=== PATIENT | male | born 1955 | race Caucasian/White ===

== ENCOUNTER 2018-06-29 08:10 | Inpatient (IN) ==
[2018-06-29] MEDS ORDERED: DEXTROSE 50% 25 GM/50 ML SYRINGE IV PRN (08:30)
[2018-06-29] MEDS ORDERED: GLUCAGON 1 MG VIAL IM PRN (08:30)
[2018-06-29] MEDS: CHLORHEXIDINE 0.12% ORAL RINSE 60 ML BOTTLE SWISH/SPIT SCH ×2 (09:53→20:43)
[2018-06-29 09:54] LABS: Basophils # 0.1 10*3/uL (0.0-0.2); Basophils % 0.6 % (0.0-0.8); Eosinophils # 0.3 10*3/uL (0.0-0.87); Eosinophils % 3.2 % (0.00-10.9); Hematocrit 37.2 VOL% (42.0-52.0); Hemoglobin 12.2 GM/DL (14.0-18.0); Immature Granulocytes % 0.2 %; Immature Granulocytes Absolute 0.02 #; Lymphocytes # 1.7 10*3/uL (1.4-4.0); Lymphocytes % 19.6 % (21.2-54.2); Mean Corpuscular HGB Conc 32.8 GM/DL (32-36); Mean Corpuscular Volume 88.6 FL (87-102); Mean Platelet Volume 10.4 FL (9.6-12.0); Monocytes % 6.9 % (1.7-12.7); Neutrophils % 69.5 % (38.7-73.9); Platelet Count 240 T/CUMM (130-400); White Blood Count 8.4 T/CUMM (4-12)
[2018-06-29 10:13] LABS: Alanine Aminotransferase 17 U/L (16-61); Albumin 3.7 G/DL (3.4-5.0); Alkaline Phosphatase 83 U/L (45-117); Aspartate Amino Transferase 8 U/L (0-37); Bilirubin,Total < 0.39 MG/DL (0.2-1.0); Blood Urea Nitrogen 10 MG/DL (7-18); Calcium 9.2 MG/DL (8.5-10.1); Glucose 95 MG/DL (74-106); Osmolality,Calculated 279.3 MOS/KG (273-304); Total Protein 7.4 G/DL (6.4-8.3)
[2018-06-29 10:23] LABS: ABG Base Excess -3.7 MMOL/L (-2.5-2.5); ABG HCO3 21.4 MMOL/L (20-26); ABG Oxygen Saturation 99.2 % (95-100); ABG PCO2 21.6 MM HG (35-48); ABG PH 7.517 (7.35-7.45); ABG TCO2 15.5 MMOL/L (23-27); Allen Test Positive
[2018-06-29] MEDS: RANOLAZINE 500 MG TABLET PO SCH ×2 (10:50→20:42)
[2018-06-29] MEDS: LEVOTHYROXINE 50 MCG TABLET PO SCH (10:50)
[2018-06-29] MEDS: LISINOPRIL 10 MG TABLET PO SCH (10:52)
[2018-06-29] MEDS: PANTOPRAZOLE 40 MG TABLET PO SCH (10:52)
[2018-06-29] MEDS: SODIUM CHLORIDE 0.9% 1,000 ML IV SCH (10:53)
[2018-06-29] MEDS: LURASIDONE 40 MG TABLET PO SCH (10:54)
[2018-06-29] MEDS: hydrOXYzine HCL 25 MG TABLET PO SCH ×4 (10:54→20:41)
[2018-06-29] MEDS: clonazePAM 0.5 MG TABLET PO SCH ×3 (10:54→20:42)
[2018-06-29] MEDS: ASPIRIN EC 325 MG TABLET PO SCH (10:54)
[2018-06-29] MEDS: CARVEDILOL 6.25 MG TABLET PO SCH ×2 (10:55→20:43)
[2018-06-29] MEDS: DULoxetine 30 MG CAPSULE PO SCH ×2 (10:55→20:42)
[2018-06-29] MEDS: CHLORHEXIDINE 4% SOLN 118 ML BOTTLE TOP SCH ×2 (14:55→20:43)
[2018-06-29] MEDS ORDERED: SIMVASTATIN 20 MG TABLET PO SCH (17:00)
[2018-06-29] MEDS ORDERED: MIRTAZAPINE 30 MG TABLET PO SCH (21:00)
[2018-06-30] MEDS ORDERED: PAPAVERINE 60 MG/2 ML VIAL ONE (04:22)
[2018-06-30] MEDS ORDERED: VANCOMYCIN 1,000 MG VIAL ONE (04:23)
[2018-06-30] MEDS ORDERED: LORazepam 1 MG TABLET PO ONE (05:00)
[2018-06-30] MEDS: CHLORHEXIDINE 4% SOLN 118 ML BOTTLE TOP SCH ×2 (05:40→12:19)
[2018-06-30] MEDS ORDERED: CEFUROXIME INJ 1,500 MG in SYRINGE 1 EACH IV ONE (06:00)
[2018-06-30] MEDS ORDERED: MINERAL OIL/PETROLATUM OPH OINT 3.5 GM TUBE ONE (06:07)
[2018-06-30] MEDS ORDERED: MIDAZOLAM 10 MG/2 ML VIAL ONE (06:07)
[2018-06-30] MEDS ORDERED: SUFentanil 250 MCG/5 ML AMP ONE (06:07)
[2018-06-30] MEDS ORDERED: PHENYLEPHRINE 1 MG/10 ML SYRINGE IV ONE ×2 (06:08→10:00)
[2018-06-30] MEDS ORDERED: AMINOCAPROIC ACID 5,000 MG/20 ML VIAL ONE (06:09)
[2018-06-30] MEDS: LEVOTHYROXINE 50 MCG TABLET PO SCH (06:44)
[2018-06-30] MEDS ORDERED: POTASSIUM CHLORIDE RIDER 100 ML IV ONE (07:47)
[2018-06-30] MEDS ORDERED: PHENYLEPHRINE DRIP 40 MG/250 ML PREMIX IV ONE (07:47)
[2018-06-30] MEDS ORDERED: NITROPRUSSIDE 50 MG/2 ML VIAL ONE (07:48)
[2018-06-30 08:01] LABS: ABG Base Excess -6.7 MMOL/L (-2.5-2.5); ABG Oxygen Saturation 99.7 % (95-100); ABG PCO2 34.2 MM HG (35-48); ABG PH 7.338 (7.35-7.45); ABG TCO2 16.5 MMOL/L (23-27); Glucose Heart Surgery 207 MG/DL (74-106); Hematocrit Heart Surgery 35.8 PERCENT (42-52); Hemoglobin Heart Surgery 11.6 G/DL (14.0-18.0); Ionized Calcium Arterial 1.23 MMOL/L (1.21-1.46); PCO2 Patient Temp Arterial 34.2 MMHG; PH Patient Temp Arterial 7.338; Patient Temperature 37 CELCIUS; Potassium Heart/CVR 4.3 MMOL/L (3.5-5.1); Sodium Heart/CVR 140 MMOL/L (135-145)
[2018-06-30 08:14] LABS: Apearance,Urine CLEAR (Clear); Bilirubin,Urine Negative (Negative); Blood, Urine Negative (Negative); Glucose,Urine (UA) 50 mg/dL (Negative); Ketones,Urine Negative (Negative); Nitrite,Urine Negative (Negative); Protein,Urine Negative; Urine Color Yellow (Yellow); Urine Specific Gravity 1.017 (1.001-1.035); Urine Urobilinogen < 2.0 EU/DL (0.2-1.0)
[2018-06-30 08:26] LABS: Mucus,Urine Rare /LPF (Occasional); RBC,Urine Rare /HPF (0-4)
[2018-06-30 09:39] LABS: Hematocrit Heart Surgery 24.4 PERCENT (42-52); Hemoglobin Heart Surgery 7.8 G/DL (14.0-18.0); PCO2 Patient Temp Venous 35.6 MM HG; PH Patient Temp Venous 7.381; PO2 Patient Temp Venous 36.4 MM HG; Potassium Heart/CVR 5.6 MMOL/L (3.5-5.1); VBG Base Excess -3.4 MEQ/L (0-4); VBG HCO3 21.2 MEQ/L (24-28); VBG PCO2 39.2 MMHG (41-51); VBG PH 7.353; VBG PO2 41.8 MMHG (17-40)
[2018-06-30] MEDS ORDERED: CALCIUM CHLORIDE 1,000 MG/10 ML VIAL IV ONE (09:59)
[2018-06-30] MEDS ORDERED: PHENYLEPHRINE DRIP 20 MG/250 ML PREMIX IV ONE (09:59)
[2018-06-30] MEDS ORDERED: VECURONIUM 10 MG VIAL IV ONE (10:00)
[2018-06-30] MEDS ORDERED: NITROGLYCERIN DRIP 50 MG/250 ML BOTTLE IV ONE (10:00)
[2018-06-30] MEDS ORDERED: HEPARIN/NACL 0.9% 2 UNITS/ML 500 ML IV ONE (10:00)
[2018-06-30] MEDS ORDERED: ETOMIDATE 40 MG/20 ML VIAL IV ONE (10:00)
[2018-06-30 10:13] LABS: Hematocrit Heart Surgery 27.1 PERCENT (42-52); Hemoglobin Heart Surgery 8.7 G/DL (14.0-18.0); PCO2 Patient Temp Venous 33.8 MM HG; PH Patient Temp Venous 7.397; PO2 Patient Temp Venous 40.8 MM HG; Potassium Heart/CVR 5.9 MMOL/L (3.5-5.1); VBG Base Excess -3.5 MEQ/L (0-4); VBG HCO3 21.2 MEQ/L (24-28); VBG Oxygen Saturation 73.7 %; VBG PCO2 33.8 MMHG (41-51); VBG PH 7.397; VBG PO2 40.8 MMHG (17-40)
[2018-06-30] MEDS ORDERED: MANNITOL 100 GM/500 ML BAG IV ONE (10:42)
[2018-06-30] MEDS ORDERED: HEPARIN 10,000 UNIT/10 ML VIAL ONE (10:43)
[2018-06-30] MEDS ORDERED: ALBUMIN 25% 25 GM/100 ML VIAL IV ONE (10:43)
[2018-06-30] MEDS ORDERED: SODIUM BICARBONATE 50 MEQ/50 ML VIAL IV ONE (10:43)
[2018-06-30] MEDS ORDERED: methylPREDNISolone SOD SUC 1,000 MG/8 ML VIAL ONE (10:43)
[2018-06-30] MEDS ORDERED: PROTAMINE SULFATE 250 MG/25 ML VIAL IV ONE (10:43)
[2018-06-30] MEDS ORDERED: DEXTROSE 5% KCL 20 MEQ 20 MEQ/1,000 ML BAG IV ONE (10:43)
[2018-06-30] MEDS ORDERED: MAGNESIUM SULFATE 5 GM/10 ML VIAL IV ONE (10:43)
[2018-06-30] MEDS ORDERED: FUROSEMIDE 20 MG/2 ML VIAL ONE (10:44)
[2018-06-30 11:00] LABS: ABG Base Excess -5.3 MMOL/L (-2.5-2.5); ABG HCO3 20.1 MMOL/L (20-26); ABG Oxygen Saturation 99.5 % (95-100); ABG PCO2 36.3 MM HG (35-48); ABG PH 7.346 (7.35-7.45); ABG TCO2 18.3 MMOL/L (23-27); Glucose Heart Surgery 292 MG/DL (74-106); Hematocrit Heart Surgery 28.6 PERCENT (42-52); Hemoglobin Heart Surgery 9.2 G/DL (14.0-18.0); Ionized Calcium Arterial 1.25 MMOL/L (1.21-1.46); PCO2 Patient Temp Arterial 36.3 MMHG; PH Patient Temp Arterial 7.346; Patient Temperature 37 CELCIUS; Potassium Heart/CVR 4.6 MMOL/L (3.5-5.1); Sodium Heart/CVR 135 MMOL/L (135-145)
[2018-06-30] MEDS: LACTATED RINGERS 1,000 ML IV PRN ×4 (12:00→18:22)
[2018-06-30] MEDS ORDERED: PROTAMINE SULFATE 50 MG/5 ML VIAL IV ONE ×2 (12:08→12:15)
[2018-06-30] MEDS ORDERED: MORPHINE 10 MG/1 ML VIAL IV PRN (12:14)
[2018-06-30] MEDS ORDERED: PHENYLEPHRINE DRIP 40 MG/250 ML PREMIX IV PRN (12:14)
[2018-06-30] MEDS ORDERED: INSULIN REGULAR DRIP 100 ML IV SCH (12:14)
[2018-06-30] MEDS ORDERED: MAGNESIUM SULF RIDER 2 GM in PREMIX 1 EACH IV PRN (12:14)
[2018-06-30] MEDS ORDERED: SODIUM CHLORIDE 0.45% 1,000 ML IV SCH ×2 (12:14)
[2018-06-30] MEDS ORDERED: INSULIN REGULAR 100 UNIT/ML IV PRN (12:14)
[2018-06-30] MEDS ORDERED: INSULIN REGULAR 100 UNIT/ML IV ONE (12:14)
[2018-06-30] MEDS ORDERED: ACETAMINOPHEN 650 MG SUPP RECTAL PRN (12:14)
[2018-06-30] MEDS ORDERED: DEXTROSE 50% 25 GM/50 ML SYRINGE IV PRN ×2 (12:14)
[2018-06-30] MEDS ORDERED: MAGNESIUM SULF RIDER 4 GM in PREMIX 1 EACH IV PRN (12:14)
[2018-06-30] MEDS ORDERED: ONDANSETRON 4 MG/2 ML VIAL IV PRN (12:14)
[2018-06-30] MEDS ORDERED: MIDAZOLAM 2 MG/2 ML VIAL IV PRN (12:14)
[2018-06-30] MEDS ORDERED: MORPHINE 4 MG/1 ML VIAL IV PRN (12:14)
[2018-06-30] MEDS ORDERED: CALCIUM CHLORIDE 1,000 MG/10 ML SYRINGE IV PRN (12:14)
[2018-06-30] MEDS ORDERED: VECURONIUM 10 MG VIAL IV PRN ×2 (12:14)
[2018-06-30] MEDS ORDERED: MIDAZOLAM 10 MG/2 ML VIAL IV PRN (12:14)
[2018-06-30] MEDS ORDERED: LACTATED RINGERS 250 ML IV PRN (12:14)
[2018-06-30] MEDS ORDERED: NITROPRUSSIDE 100 MG in DEXTROSE 5% 250 ML IV PRN (12:14)
[2018-06-30 12:40] LABS: ABG Base Excess -4.1 MMOL/L (-2.5-2.5); ABG Oxygen Saturation 99.3 % (95-100); ABG PH 7.375 (7.35-7.45); ABG TCO2 18.7 MMOL/L (23-27); Glucose Heart Surgery 292 MG/DL (74-106); Hematocrit Heart Surgery 30.1 PERCENT (42-52); Hemoglobin Heart Surgery 9.7 G/DL (14.0-18.0); Potassium Heart/CVR 3.7 MMOL/L (3.5-5.1)
[2018-06-30 12:42] LABS: Basophils % 0.3 % (0.0-0.8); Eosinophils # 0.1 10*3/uL (0.0-0.87); Eosinophils % 0.7 % (0.00-10.9); Hematocrit 29.5 VOL% (42.0-52.0); Immature Granulocytes % 0.6 %; Immature Granulocytes Absolute 0.06 #; Lymphocytes # 0.9 10*3/uL (1.4-4.0); Lymphocytes % 8.4 % (21.2-54.2); Mean Corpuscular HGB Conc 32.2 GM/DL (32-36); Mean Corpuscular Volume 88.6 FL (87-102); Mean Platelet Volume 10.3 FL (9.6-12.0); Monocytes % 3.5 % (1.7-12.7); Neutrophils % 86.5 % (38.7-73.9); Red Cell Distribution Width 13.8 % (9.3-17.3); White Blood Count 10.2 T/CUMM (4-12)
[2018-06-30 12:43] LABS: Hemoglobin 9.5 GM/DL (14.0-18.0); Platelet Count 182 T/CUMM (130-400); Red Blood Count 3.33 MC/CUMM (3.8-5.5)
[2018-06-30] MEDS: POTASSIUM CHLORIDE RIDER 20 MEQ in PREMIX 1 EACH IV PRN ×4 (12:47→22:00)
[2018-06-30 12:48] LABS: INR 1.1; PT Patient Result 11.8 SECS; Partial Thromboplastin Time 25.6 SECS (0-40)
[2018-06-30 13:00] LABS: Albumin 2.9 G/DL (3.4-5.0); Bilirubin,Total 0.6 MG/DL (0.2-1.0); Calcium 8.1 MG/DL (8.5-10.1); Osmolality,Calculated 289.3 MOS/KG (273-304); Total Protein 5.4 G/DL (6.4-8.3)
[2018-06-30 13:02] LABS: CKMB % 6.3 %
[2018-06-30 13:03] LABS: Troponin I 2.98 NG/ML (0.00-0.045)
[2018-06-30] MEDS: POTASSIUM CHLORIDE RIDER 10 MEQ in PREMIX 1 EACH IV PRN ×4 (13:27→22:42)
[2018-06-30 14:27] LABS: ABG Base Excess -4.4 MMOL/L (-2.5-2.5); ABG HCO3 20.8 MMOL/L (20-26); ABG Oxygen Saturation 99.3 % (95-100); ABG PCO2 36.8 MM HG (35-48); ABG PH 7.356 (7.35-7.45); ABG TCO2 18.8 MMOL/L (23-27); Glucose Heart Surgery 253 MG/DL (74-106); Hematocrit Heart Surgery 31.5 PERCENT (42-52); Hemoglobin Heart Surgery 10.2 G/DL (14.0-18.0); Potassium Heart/CVR 3.7 MMOL/L (3.5-5.1)
[2018-06-30] MEDS: ALBUMIN 5% 12.5 GM in PREMIX 1 EACH IV PRN ×2 (16:54→19:54)
[2018-06-30 18:01] LABS: ABG Base Excess -3.5 MMOL/L (-2.5-2.5); ABG HCO3 21.5 MMOL/L (20-26); ABG Oxygen Saturation 98.8 % (95-100); ABG PCO2 38.2 MM HG (35-48); ABG TCO2 19.8 MMOL/L (23-27); Glucose Heart Surgery 195 MG/DL (74-106); Hematocrit Heart Surgery 29.6 PERCENT (42-52); Hemoglobin Heart Surgery 9.6 G/DL (14.0-18.0); Potassium Heart/CVR 3.7 MMOL/L (3.5-5.1)
[2018-06-30] MEDS ORDERED: CEFUROXIME INJ 1,500 MG in SYRINGE 1 EACH IV SCH (19:42)
[2018-06-30 20:15] LABS: ABG Base Excess -4.3 MMOL/L (-2.5-2.5); ABG HCO3 20.8 MMOL/L (20-26); ABG Oxygen Saturation 98.2 % (95-100); ABG PCO2 38.2 MM HG (35-48); ABG PH 7.346 (7.35-7.45); ABG TCO2 19.2 MMOL/L (23-27); Glucose Heart Surgery 154 MG/DL (74-106); Hematocrit Heart Surgery 29.6 PERCENT (42-52); Hemoglobin Heart Surgery 9.6 G/DL (14.0-18.0); Potassium Heart/CVR 3.9 MMOL/L (3.5-5.1)
[2018-06-30 20:49] LABS: CKMB % 4.4 %
[2018-06-30 20:52] LABS: Troponin I 2.5 NG/ML (0.00-0.045)
[2018-06-30] MEDS ORDERED: CHLORHEXIDINE 0.12% ORAL RINSE 60 ML BOTTLE SWISH/SPIT SCH (21:00)
[2018-06-30 23:32] LABS: ABG Base Excess -3.3 MMOL/L (-2.5-2.5); ABG Oxygen Saturation 97.5 % (95-100); ABG PCO2 34.4 MM HG (35-48); ABG PH 7.403 (7.35-7.45); ABG PO2 115.6 MM HG (80-95); Glucose Heart Surgery 93 MG/DL (74-106); Hemoglobin Heart Surgery 9.6 G/DL (14.0-18.0); Potassium Heart/CVR 4.1 MMOL/L (3.5-5.1)
[2018-07-01 00:07] LABS: Basophils % 0.1 % (0.0-0.8); Hematocrit 27.1 VOL% (42.0-52.0); Hemoglobin 8.7 GM/DL (14.0-18.0); Immature Granulocytes % 0.5 %; Immature Granulocytes Absolute 0.07 #; Lymphocytes # 0.6 10*3/uL (1.4-4.0); Lymphocytes % 4.3 % (21.2-54.2); Mean Corpuscular HGB Conc 32.1 GM/DL (32-36); Mean Corpuscular Volume 88.6 FL (87-102); Mean Platelet Volume 10.4 FL (9.6-12.0); Monocytes % 3.9 % (1.7-12.7); Neutrophils % 91.2 % (38.7-73.9); Platelet Count 194 T/CUMM (130-400); Red Blood Count 3.06 MC/CUMM (3.8-5.5); White Blood Count 13.5 T/CUMM (4-12)
[2018-07-01 01:58] LABS: Band Neutrophils 1 % (0-10); Lymphocytes 5 % (20-55); Platelet Estimate Normal; Segmented Neutrophils 91 % (50-85); Total Cells Counted 100
[2018-07-01] MEDS ORDERED: PROPOFOL 1,000 MG/100 ML BOTTLE IV ONE (01:59)
[2018-07-01] MEDS ORDERED: PROPOFOL 1,000 MG/100 ML BOTTLE IV SCH (02:00)
[2018-07-01 03:17] LABS: ABG Base Excess -4.9 MMOL/L (-2.5-2.5); ABG Oxygen Saturation 97.9 % (95-100); ABG PCO2 31.2 MM HG (35-48); ABG PH 7.402 (7.35-7.45); ABG PO2 125.9 MM HG (80-95); ABG TCO2 19.9 MMOL/L (23-27); Glucose Heart Surgery 144 MG/DL (74-106); Hemoglobin Heart Surgery 10.3 G/DL (14.0-18.0); Potassium Heart/CVR 3.9 MMOL/L (3.5-5.1)
[2018-07-01] MEDS: POTASSIUM CHLORIDE RIDER 10 MEQ in PREMIX 1 EACH IV PRN (03:26)
[2018-07-01] MEDS: POTASSIUM CHLORIDE RIDER 20 MEQ in PREMIX 1 EACH IV PRN ×2 (03:52→06:40)
[2018-07-01 04:34] LABS: Basophils % 0.1 % (0.0-0.8); Hematocrit 29.4 VOL% (42.0-52.0); Hemoglobin 9.5 GM/DL (14.0-18.0); Immature Granulocytes % 0.6 %; Immature Granulocytes Absolute 0.09 #; Lymphocytes # 0.7 10*3/uL (1.4-4.0); Lymphocytes % 4.7 % (21.2-54.2); Mean Corpuscular HGB Conc 32.3 GM/DL (32-36); Mean Corpuscular Volume 90.2 FL (87-102); Mean Platelet Volume 10.8 FL (9.6-12.0); Monocytes % 5.4 % (1.7-12.7); Neutrophils % 89.2 % (38.7-73.9); Platelet Count 179 T/CUMM (130-400); Red Blood Count 3.26 MC/CUMM (3.8-5.5); Red Cell Distribution Width 13.8 % (9.3-17.3); White Blood Count 14.7 T/CUMM (4-12)
[2018-07-01 04:46] LABS: Alanine Aminotransferase 15 U/L (16-61); Albumin 3.3 G/DL (3.4-5.0); Alkaline Phosphatase 58 U/L (45-117); Aspartate Amino Transferase 17 U/L (0-37); Bilirubin,Direct < 0.100 MG/DL (0.0-0.20); Blood Urea Nitrogen 12 MG/DL (7-18); Calcium 8.4 MG/DL (8.5-10.1); Glucose 140 MG/DL (74-106); Osmolality,Calculated 284.1 MOS/KG (273-304); Total Protein 5.9 G/DL (6.4-8.3)
[2018-07-01 04:47] LABS: CKMB % 3.2 %
[2018-07-01 04:52] LABS: ABG Base Excess -4.3 MMOL/L (-2.5-2.5); ABG HCO3 20.8 MMOL/L (20-26); ABG Oxygen Saturation 98.7 % (95-100); ABG PCO2 32.3 MM HG (35-48); ABG PH 7.395 (7.35-7.45); Glucose Heart Surgery 157 MG/DL (74-106); Hematocrit Heart Surgery 30.9 PERCENT (42-52); Potassium Heart/CVR 4.4 MMOL/L (3.5-5.1)
[2018-07-01 04:55] LABS: Troponin I 2.14 NG/ML (0.00-0.045)
[2018-07-01 05:14] LABS: Lymphocytes 2 % (20-55); Metamyelocytes 1 %; Platelet Estimate Decreased; Polychromasia Few; Segmented Neutrophils 96 % (50-85); Total Cells Counted 100
[2018-07-01 05:35] LABS: ABG Base Excess -3.9 MMOL/L (-2.5-2.5); ABG HCO3 19.8 MMOL/L (20-26); ABG Oxygen Saturation 97.2 % (95-100); ABG PCO2 31.2 MM HG (35-48); ABG PO2 103.4 MM HG (80-95); ABG TCO2 20.7 MMOL/L (23-27); Glucose Heart Surgery 128 MG/DL (74-106); Hemoglobin Heart Surgery 10.4 G/DL (14.0-18.0); Potassium Heart/CVR 4.2 MMOL/L (3.5-5.1)
[2018-07-01] MEDS: CARVEDILOL 6.25 MG TABLET PO SCH ×3 (05:43→08:56)
[2018-07-01] MEDS ORDERED: ePHEDrine 50 MG/ML AMP ONE (06:09)
[2018-07-01] MEDS ORDERED: MAGNESIUM SULF RIDER 2 GM in PREMIX 1 EACH IV PRN (07:06)
[2018-07-01] MEDS ORDERED: DEXTROSE 50% 25 GM/50 ML SYRINGE IV PRN (07:06)
[2018-07-01] MEDS ORDERED: ZALEPLON 5 MG CAPSULE PO PRN (07:06)
[2018-07-01] MEDS ORDERED: ALUMINUM/MAGNES/SIMETH MAX STR 30 ML UDCUP PO PRN (07:06)
[2018-07-01] MEDS ORDERED: ONDANSETRON 4 MG/2 ML VIAL IV PRN (07:06)
[2018-07-01] MEDS ORDERED: oxyCODONE/ACETAMINOPHEN 5-325 MG TABLET PO PRN (07:06)
[2018-07-01] MEDS ORDERED: MAGNESIUM SULF RIDER 4 GM in PREMIX 1 EACH IV PRN (07:06)
[2018-07-01] MEDS ORDERED: GLUCAGON 1 MG VIAL IM PRN ×3 (07:06→07:17)
[2018-07-01] MEDS ORDERED: DEXTROSE 50% 25 GM/50 ML VIAL IV PRN ×2 (07:06→07:17)
[2018-07-01] MEDS ORDERED: MAGNESIUM HYDROXIDE SUSP 30 ML UDCUP PO PRN (07:06)
[2018-07-01] MEDS ORDERED: ACETAMINOPHEN 325 MG TABLET PO PRN (07:06)
[2018-07-01] MEDS ORDERED: POTASSIUM CHLORIDE 20 MEQ TABLET PO PRN (07:06)
[2018-07-01] MEDS: CEFUROXIME INJ 1,500 MG in SYRINGE 1 EACH IV SCH ×2 (07:42→18:31)
[2018-07-01] MEDS: SODIUM CHLOR 0.45% KCL 20 MEQ 20 MEQ/1,000 ML BAG IV SCH (07:42)
[2018-07-01] MEDS: BENZTROPINE 1 MG TABLET PO SCH ×2 (08:07→20:15)
[2018-07-01] MEDS: clonazePAM 0.5 MG TABLET PO SCH ×3 (08:07→20:15)
[2018-07-01] MEDS: PANTOPRAZOLE 40 MG TABLET PO SCH ×2 (08:07→08:51)
[2018-07-01] MEDS: FERROUS SULFATE 325 MG TABLET PO SCH (08:08)
[2018-07-01] MEDS: ISOSORBIDE MONONITRATE 30 MG TABLET PO SCH (08:08)
[2018-07-01] MEDS: DOCUSATE SODIUM 100 MG CAPSULE PO SCH (08:08)
[2018-07-01] MEDS: metFORMIN 500 MG TABLET PO SCH (08:08)
[2018-07-01] MEDS: ASPIRIN EC 325 MG TABLET PO SCH ×2 (08:08→08:50)
[2018-07-01] MEDS: sitaGLIPtin 25 MG TABLET PO SCH (08:08)
[2018-07-01] MEDS: KETOROLAC 30 MG/1 ML VIAL IV PRN ×2 (08:17→22:42)
[2018-07-01] MEDS: INSULIN REGULAR 100 UNIT/ML SUBCUT SCH ×4 (08:22→20:15)
[2018-07-01] MEDS: CHLORHEXIDINE 0.12% ORAL RINSE 60 ML BOTTLE SWISH/SPIT SCH ×3 (08:23→20:15)
[2018-07-01] MEDS: DULoxetine 30 MG CAPSULE PO SCH (08:50)
[2018-07-01] MEDS: hydrOXYzine HCL 25 MG TABLET PO SCH (08:50)
[2018-07-01] MEDS: LISINOPRIL 10 MG TABLET PO SCH ×2 (08:51→08:56)
[2018-07-01] MEDS: SODIUM CHLORIDE 0.9% 1,000 ML IV SCH (08:51)
[2018-07-01] MEDS: LURASIDONE 40 MG TABLET PO SCH ×2 (08:51→20:15)
[2018-07-01] MEDS: RANOLAZINE 500 MG TABLET PO SCH (08:52)
[2018-07-01] MEDS ORDERED: CARVEDILOL 6.25 MG TABLET PO SCH (09:00)
[2018-07-01] MEDS ORDERED: sitaGLIPtin 25 MG TABLET PO SCH (09:00)
[2018-07-01] MEDS ORDERED: ALBUMIN 5% 12.5 GM/250 ML VIAL IV ONE (09:33)
[2018-07-01] MEDS ORDERED: ALBUMIN 5% 12.5 GM in PREMIX 1 EACH IV ONE ×2 (09:47→10:44)
[2018-07-01] MEDS ORDERED: PHENYLEPHRINE DRIP 40 MG/250 ML PREMIX IV ONE (11:24)
[2018-07-01] MEDS ORDERED: PHENYLEPHRINE DRIP 40 MG/250 ML PREMIX IV PRN (12:05)
[2018-07-01] MEDS: SIMVASTATIN 20 MG TABLET PO SCH (20:15)
[2018-07-01] MEDS: INSULIN GLARGINE 100 UNIT/ML SUBCUT SCH (20:15)
[2018-07-02] MEDS: INSULIN REGULAR 100 UNIT/ML SUBCUT SCH ×7 (01:01→20:06)
[2018-07-02 05:05] LABS: Basophils % 0.3 % (0.0-0.8); Eosinophils % 0.2 % (0.00-10.9); Hematocrit 25.3 VOL% (42.0-52.0); Hemoglobin 8.1 GM/DL (14.0-18.0); Immature Granulocytes % 0.6 %; Immature Granulocytes Absolute 0.08 #; Lymphocytes # 1.9 10*3/uL (1.4-4.0); Lymphocytes % 14.4 % (21.2-54.2); Mean Corpuscular Volume 91.7 FL (87-102); Mean Platelet Volume 10.5 FL (9.6-12.0); Monocytes % 9.2 % (1.7-12.7); Neutrophils % 75.3 % (38.7-73.9); Platelet Count 163 T/CUMM (130-400); Red Blood Count 2.76 MC/CUMM (3.8-5.5); Red Cell Distribution Width 14.3 % (9.3-17.3); White Blood Count 13.3 T/CUMM (4-12)
[2018-07-02 05:32] LABS: Albumin 2.9 G/DL (3.4-5.0); Bilirubin,Direct 0.14 MG/DL (0.0-0.20); Bilirubin,Indirect 0.4 MG/DL (0.0-1.0); Bilirubin,Total 0.5 MG/DL (0.2-1.0); CKMB % 2.5 %; Calcium 8.2 MG/DL (8.5-10.1); Total Protein 5.3 G/DL (6.4-8.3)
[2018-07-02 05:40] LABS: Troponin I 2.45 NG/ML (0.00-0.045)
[2018-07-02] MEDS ORDERED: KETOROLAC 30 MG/1 ML VIAL IV PRN ×2 (05:54→12:30)
[2018-07-02] MEDS ORDERED: FUROSEMIDE 40 MG/4 ML VIAL IV ONE (06:00)
[2018-07-02] MEDS ORDERED: MORPHINE 4 MG/1 ML VIAL IV ONE (08:48)
[2018-07-02] MEDS: SODIUM CHLOR 0.45% KCL 20 MEQ 20 MEQ/1,000 ML BAG IV SCH (09:32)
[2018-07-02] MEDS: ASPIRIN EC 325 MG TABLET PO SCH (09:43)
[2018-07-02] MEDS: sitaGLIPtin 25 MG TABLET PO SCH (09:44)
[2018-07-02] MEDS: DOCUSATE SODIUM 100 MG CAPSULE PO SCH (09:44)
[2018-07-02] MEDS: CARVEDILOL 6.25 MG TABLET PO SCH (09:44)
[2018-07-02] MEDS: BENZTROPINE 1 MG TABLET PO SCH ×2 (09:45→20:06)
[2018-07-02] MEDS: LISINOPRIL 10 MG TABLET PO SCH (09:45)
[2018-07-02] MEDS: ISOSORBIDE MONONITRATE 30 MG TABLET PO SCH (09:45)
[2018-07-02] MEDS: metFORMIN 500 MG TABLET PO SCH (09:46)
[2018-07-02] MEDS: clonazePAM 0.5 MG TABLET PO SCH ×2 (09:46→20:05)
[2018-07-02] MEDS: FERROUS SULFATE 325 MG TABLET PO SCH (09:46)
[2018-07-02] MEDS: PANTOPRAZOLE 40 MG TABLET PO SCH (09:47)
[2018-07-02] MEDS: CHLORHEXIDINE 0.12% ORAL RINSE 60 ML BOTTLE SWISH/SPIT SCH ×2 (09:49→20:15)
[2018-07-02] MEDS ORDERED: ACETAMINOPHEN 325 MG TABLET PO PRN (12:30)
[2018-07-02] MEDS ORDERED: GLUCAGON 1 MG VIAL IM PRN ×2 (12:30)
[2018-07-02] MEDS ORDERED: ALUMINUM/MAGNES/SIMETH MAX STR 30 ML UDCUP PO PRN (12:30)
[2018-07-02] MEDS ORDERED: DEXTROSE 50% 25 GM/50 ML SYRINGE IV PRN (12:30)
[2018-07-02] MEDS ORDERED: DEXTROSE 50% 25 GM/50 ML VIAL IV PRN (12:30)
[2018-07-02] MEDS ORDERED: MAGNESIUM SULF RIDER 4 GM in PREMIX 1 EACH IV PRN (12:30)
[2018-07-02] MEDS ORDERED: MORPHINE 4 MG/1 ML VIAL IV PRN (12:30)
[2018-07-02] MEDS ORDERED: MAGNESIUM SULF RIDER 2 GM in PREMIX 1 EACH IV PRN (12:30)
[2018-07-02] MEDS ORDERED: SODIUM CHLOR 0.45% KCL 20 MEQ 20 MEQ/1,000 ML BAG IV SCH (12:30)
[2018-07-02] MEDS ORDERED: ONDANSETRON 4 MG/2 ML VIAL IV PRN (12:30)
[2018-07-02] MEDS ORDERED: MAGNESIUM HYDROXIDE SUSP 30 ML UDCUP PO PRN (12:30)
[2018-07-02] MEDS: INSULIN GLARGINE 100 UNIT/ML SUBCUT SCH (20:06)
[2018-07-02] MEDS: SIMVASTATIN 20 MG TABLET PO SCH (20:06)
[2018-07-02] MEDS: LURASIDONE 40 MG TABLET PO SCH (20:06)
[2018-07-03] MEDS: INSULIN REGULAR 100 UNIT/ML SUBCUT SCH ×6 (01:51→21:23)
[2018-07-03] MEDS: oxyCODONE/ACETAMINOPHEN 5-325 MG TABLET PO PRN ×2 (01:55→21:08)
[2018-07-03 05:38] LABS: Basophils % 0.3 % (0.0-0.8); Eosinophils # 0.1 10*3/uL (0.0-0.87); Eosinophils % 0.8 % (0.00-10.9); Hematocrit 27.3 VOL% (42.0-52.0); Hemoglobin 8.7 GM/DL (14.0-18.0); Immature Granulocytes % 0.7 %; Immature Granulocytes Absolute 0.08 #; Lymphocytes # 1.6 10*3/uL (1.4-4.0); Lymphocytes % 15.3 % (21.2-54.2); Mean Corpuscular HGB Conc 31.9 GM/DL (32-36); Mean Corpuscular Volume 90.4 FL (87-102); Mean Platelet Volume 10.1 FL (9.6-12.0); Monocytes % 9.5 % (1.7-12.7); Neutrophils % 73.4 % (38.7-73.9); Platelet Count 185 T/CUMM (130-400); Red Blood Count 3.02 MC/CUMM (3.8-5.5); Red Cell Distribution Width 13.5 % (9.3-17.3); White Blood Count 10.7 T/CUMM (4-12)
[2018-07-03] MEDS ORDERED: FUROSEMIDE 40 MG/4 ML VIAL IV ONE (06:00)
[2018-07-03 06:37] LABS: Alanine Aminotransferase 14 U/L (16-61); Albumin 3.1 G/DL (3.4-5.0); Alkaline Phosphatase 55 U/L (45-117); Aspartate Amino Transferase 9 U/L (0-37); Bilirubin,Indirect 0.4 MG/DL (0.0-1.0); Blood Urea Nitrogen 13 MG/DL (7-18); Calcium 8.1 MG/DL (8.5-10.1); Glucose 165 MG/DL (74-106); Osmolality,Calculated 282.4 MOS/KG (273-304); Total Protein 5.9 G/DL (6.4-8.3)
[2018-07-03 06:38] LABS: Troponin I 0.651 NG/ML (0.00-0.045)
[2018-07-03] MEDS: PANTOPRAZOLE 40 MG TABLET PO SCH (09:02)
[2018-07-03] MEDS: clonazePAM 0.5 MG TABLET PO SCH ×2 (09:02→20:03)
[2018-07-03] MEDS: sitaGLIPtin 25 MG TABLET PO SCH (09:02)
[2018-07-03] MEDS: ASPIRIN EC 325 MG TABLET PO SCH (09:02)
[2018-07-03] MEDS: DOCUSATE SODIUM 100 MG CAPSULE PO SCH (09:02)
[2018-07-03] MEDS: CHLORHEXIDINE 0.12% ORAL RINSE 60 ML BOTTLE SWISH/SPIT SCH ×2 (09:03→20:03)
[2018-07-03] MEDS: FERROUS SULFATE 325 MG TABLET PO SCH (09:03)
[2018-07-03] MEDS: BENZTROPINE 1 MG TABLET PO SCH ×2 (09:03→20:03)
[2018-07-03] MEDS: metFORMIN 500 MG TABLET PO SCH (09:03)
[2018-07-03] MEDS: CARVEDILOL 6.25 MG TABLET PO SCH (09:03)
[2018-07-03] MEDS: SIMVASTATIN 20 MG TABLET PO SCH (20:03)
[2018-07-03] MEDS: LURASIDONE 40 MG TABLET PO SCH (20:03)
[2018-07-03] MEDS: MIRTAZAPINE 30 MG TABLET PO SCH (20:03)
[2018-07-03] MEDS: ZALEPLON 5 MG CAPSULE PO PRN (21:09)
[2018-07-03] MEDS: INSULIN GLARGINE 100 UNIT/ML SUBCUT SCH (21:23)
[2018-07-04] MEDS: INSULIN REGULAR 100 UNIT/ML SUBCUT SCH ×6 (00:35→20:48)
[2018-07-04 04:52] LABS: Basophils % 0.4 % (0.0-0.8); Eosinophils # 0.3 10*3/uL (0.0-0.87); Eosinophils % 3.6 % (0.00-10.9); Hematocrit 30.1 VOL% (42.0-52.0); Hemoglobin 9.7 GM/DL (14.0-18.0); Immature Granulocytes % 0.6 %; Immature Granulocytes Absolute 0.06 #; Lymphocytes # 2.3 10*3/uL (1.4-4.0); Lymphocytes % 24.3 % (21.2-54.2); Mean Corpuscular HGB Conc 32.2 GM/DL (32-36); Mean Corpuscular Volume 89.6 FL (87-102); Mean Platelet Volume 10.2 FL (9.6-12.0); Monocytes % 9.9 % (1.7-12.7); Neutrophils % 61.2 % (38.7-73.9); Platelet Count 245 T/CUMM (130-400); Red Blood Count 3.36 MC/CUMM (3.8-5.5); Red Cell Distribution Width 13.5 % (9.3-17.3); White Blood Count 9.4 T/CUMM (4-12)
[2018-07-04 05:24] LABS: Alanine Aminotransferase 19 U/L (16-61); Albumin 3.1 G/DL (3.4-5.0); Alkaline Phosphatase 65 U/L (45-117); Aspartate Amino Transferase 13 U/L (0-37); Bilirubin,Indirect 0.9 MG/DL (0.0-1.0); Blood Urea Nitrogen 14 MG/DL (7-18); Glucose 115 MG/DL (74-106); Osmolality,Calculated 284.1 MOS/KG (273-304); Total Protein 6.5 G/DL (6.4-8.3)
[2018-07-04 05:26] LABS: Troponin I 0.263 NG/ML (0.00-0.045)
[2018-07-04] MEDS: ASPIRIN EC 325 MG TABLET PO SCH (08:25)
[2018-07-04] MEDS: DOCUSATE SODIUM 100 MG CAPSULE PO SCH (08:25)
[2018-07-04] MEDS: sitaGLIPtin 25 MG TABLET PO SCH (08:25)
[2018-07-04] MEDS: PANTOPRAZOLE 40 MG TABLET PO SCH (08:25)
[2018-07-04] MEDS: BENZTROPINE 1 MG TABLET PO SCH ×3 (08:25→20:02)
[2018-07-04] MEDS: CARVEDILOL 6.25 MG TABLET PO SCH (08:26)
[2018-07-04] MEDS: metFORMIN 500 MG TABLET PO SCH (08:26)
[2018-07-04] MEDS: FERROUS SULFATE 325 MG TABLET PO SCH (08:26)
[2018-07-04] MEDS: clonazePAM 0.5 MG TABLET PO SCH ×3 (08:26→20:02)
[2018-07-04] MEDS: CHLORHEXIDINE 0.12% ORAL RINSE 60 ML BOTTLE SWISH/SPIT SCH ×2 (08:28→20:02)
[2018-07-04] MEDS ORDERED: LISINOPRIL 10 MG TABLET PO SCH (09:00)
[2018-07-04] MEDS: POTASSIUM CHLORIDE 20 MEQ TABLET PO PRN ×3 (11:48→14:46)
[2018-07-04] MEDS ORDERED: SODIUM CHLORIDE 0.9% 500 ML IV ONE ×2 (16:53→16:55)
[2018-07-04] MEDS: LURASIDONE 40 MG TABLET PO SCH ×2 (19:40→20:02)
[2018-07-04] MEDS: MIRTAZAPINE 30 MG TABLET PO SCH ×2 (19:40→20:02)
[2018-07-04] MEDS: SIMVASTATIN 20 MG TABLET PO SCH ×2 (19:41→20:02)
[2018-07-04] MEDS: INSULIN GLARGINE 100 UNIT/ML SUBCUT SCH (20:48)
[2018-07-04] MEDS: ZALEPLON 5 MG CAPSULE PO PRN (20:49)
[2018-07-04] MEDS: oxyCODONE/ACETAMINOPHEN 5-325 MG TABLET PO PRN (20:49)
[2018-07-05] MEDS: clonazePAM 0.5 MG TABLET PO SCH ×2 (09:16→21:50)
[2018-07-05] MEDS: CHLORHEXIDINE 0.12% ORAL RINSE 60 ML BOTTLE SWISH/SPIT SCH ×2 (09:16→21:59)
[2018-07-05] MEDS: ASPIRIN EC 325 MG TABLET PO SCH (09:16)
[2018-07-05] MEDS: PANTOPRAZOLE 40 MG TABLET PO SCH (09:17)
[2018-07-05] MEDS: sitaGLIPtin 25 MG TABLET PO SCH (09:17)
[2018-07-05] MEDS: DOCUSATE SODIUM 100 MG CAPSULE PO SCH (09:17)
[2018-07-05] MEDS: FERROUS SULFATE 325 MG TABLET PO SCH (09:17)
[2018-07-05] MEDS: metFORMIN 500 MG TABLET PO SCH (09:17)
[2018-07-05] MEDS: BENZTROPINE 1 MG TABLET PO SCH ×2 (09:17→21:50)
[2018-07-05] MEDS: CARVEDILOL 3.125 MG TABLET PO SCH ×2 (09:19→21:50)
[2018-07-05] MEDS: INSULIN REGULAR 100 UNIT/ML SUBCUT SCH ×4 (09:22→22:50)
[2018-07-05] MEDS: LURASIDONE 40 MG TABLET PO SCH (21:50)
[2018-07-05] MEDS: SIMVASTATIN 20 MG TABLET PO SCH (21:50)
[2018-07-05] MEDS: MIRTAZAPINE 30 MG TABLET PO SCH (21:51)
[2018-07-05] MEDS: INSULIN GLARGINE 100 UNIT/ML SUBCUT SCH (21:56)
[2018-07-06 05:47] LABS: Basophils # 0.1 10*3/uL (0.0-0.2); Basophils % 0.7 % (0.0-0.8); Eosinophils # 0.4 10*3/uL (0.0-0.87); Eosinophils % 5.2 % (0.00-10.9); Hematocrit 26.7 VOL% (42.0-52.0); Hemoglobin 8.6 GM/DL (14.0-18.0); Immature Granulocytes % 0.9 %; Immature Granulocytes Absolute 0.07 #; Lymphocytes # 1.3 10*3/uL (1.4-4.0); Lymphocytes % 17.3 % (21.2-54.2); Mean Corpuscular HGB Conc 32.2 GM/DL (32-36); Mean Corpuscular Volume 90.8 FL (87-102); Mean Platelet Volume 10.3 FL (9.6-12.0); Monocytes % 9.8 % (1.7-12.7); Neutrophils % 66.1 % (38.7-73.9); Platelet Count 285 T/CUMM (130-400); Red Blood Count 2.94 MC/CUMM (3.8-5.5); Red Cell Distribution Width 13.2 % (9.3-17.3); White Blood Count 7.6 T/CUMM (4-12)
[2018-07-06 06:28] LABS: Alanine Aminotransferase 28 U/L (16-61); Albumin 2.8 G/DL (3.4-5.0); Alkaline Phosphatase 56 U/L (45-117); Aspartate Amino Transferase 13 U/L (0-37); Bilirubin,Direct < 0.100 MG/DL (0.0-0.20); Bilirubin,Indirect 0.4 MG/DL (0.0-1.0); Blood Urea Nitrogen 10 MG/DL (7-18); Calcium 8.9 MG/DL (8.5-10.1); Glucose 84 MG/DL (74-106); Osmolality,Calculated 283.8 MOS/KG (273-304); Total Protein 6.1 G/DL (6.4-8.3)
[2018-07-06 06:30] LABS: Troponin I 0.061 NG/ML (0.00-0.045)
[2018-07-06 08:28] VITALS: BP 130/70
[2018-07-06] MEDS: INSULIN REGULAR 100 UNIT/ML SUBCUT SCH ×2 (08:39→11:55)
[2018-07-06] MEDS: PANTOPRAZOLE 40 MG TABLET PO SCH (09:28)
[2018-07-06] MEDS: DOCUSATE SODIUM 100 MG CAPSULE PO SCH (09:28)
[2018-07-06] MEDS: CHLORHEXIDINE 0.12% ORAL RINSE 60 ML BOTTLE SWISH/SPIT SCH (09:28)
[2018-07-06] MEDS: sitaGLIPtin 25 MG TABLET PO SCH (09:28)
[2018-07-06] MEDS: clonazePAM 0.5 MG TABLET PO SCH (09:28)
[2018-07-06] MEDS: metFORMIN 500 MG TABLET PO SCH (09:28)
[2018-07-06] MEDS: BENZTROPINE 1 MG TABLET PO SCH (09:28)
[2018-07-06] MEDS: CARVEDILOL 3.125 MG TABLET PO SCH (09:28)
[2018-07-06] MEDS: ASPIRIN EC 325 MG TABLET PO SCH (09:28)
[2018-07-06] MEDS: FERROUS SULFATE 325 MG TABLET PO SCH (09:28)
== END 2018-07-06 12:40 | disposition home health service (06) | DRG 166 ==
LOC: N.ADMINP 08:10 → N.TELEN 08:14 → N.CVR 06-30 08:35 → N.ICU 07-01 11:52 → N.TELES 07-02 14:44